=== PATIENT | female | born 1965 | race Caucasian/White ===

== ENCOUNTER 2022-01-03 07:30 | Inpatient (IN) ==
[2021-12-30 16:24] LABS: Appearance,Urine HAZY (Clear); Bilirubin,Urine Negative (Negative); Color,Urine YELLOW; Culture Indicated,Urine No; Glucose,Urine (UA) Negative (Negative); Ketones,Urine Negative (Negative); Leukocyte Esterase,Urine 250 /uL (Negative); Mucus,Urine FEW /hpf; Nitrate,Urine Negative (Negative); Protein,Urine Negative (Negative); Specific Gravity,Urine 1.038 (1.000-1.035); Urine Blood 0.03 mg/dL (Negative); Urine RBC 7 /hpf (0-3); Urine Squamous Epithelial Cell 10 /hpf (0-4); Urine Transitional Epi Cells < 1 /hpf (0-2); Urine WBC 34 /hpf (0-4); Urobilinogen,Urine Negative
[2021-12-30 18:08] LABS: INR 0.9 (0.9-1.1); Prothrombin Time 12.8 sec (11.9-14.5)
[2021-12-30 18:19] LABS: Basophils # (Auto) 0.04 K/mcL (0.00-0.30); Basophils % (Auto) 0.4 % (0.0-2.0); Eosinophils # (Auto) 0.15 K/mcL (0.00-0.70); Eosinophils % (Auto) 1.6 % (0.0-7.0); Hematocrit 41.2 % (34.1-44.9); Hemoglobin 13.7 g/dL (11.2-15.7); Lymphocytes # (Auto) 3.84 K/mcL (1.50-4.80); Lymphocytes % (Auto) 40.8 % (15.5-49.0); Mean Cell Volume 94.1 fL (80.0-100.0); Mean Corpuscular HGB Conc 33.3 g/dL (31.0-36.0); Mean Platelet Volume 10.3 fL (8.8-12.5); Monocytes # (Auto) 0.57 K/mcL (0.10-0.90); Monocytes % (Auto) 6.1 % (1.0-12.0); Neutrophils % (Auto) 50.7 % (38.0-78.0); Platelet Count 256 K/mcL (140-440); RBC 4.38 M/mcL (3.59-5.38); Red Cell Distribution Width 12.8 % (11.5-14.5); WBC 9.4 K/mcL (4.5-11.0)
[2021-12-30 18:27] LABS: Blood Urea Nitrogen 22 mg/dL (6-20); Calcium 9.4 mg/dL (8.6-10.4); Carbon Dioxide 22 mmol/L (22-30); Chloride 103 mmol/L (96-108); Glomerular Filtration Rate 101; Glucose 102 mg/dL (70-105)
--- NOTE | 2021-12-31 07:18 | EKG ---
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
[~2022-01-03 07:30] MED LIST: 0.9 % SODIUM CHLORIDE 9 ML, KETOROLAC 30 MG, ROPIVACAINE HCL/PF 49.5 ML, EPINEPHrine 0.... IJ SCH; ACETAMINOPHEN 500 MG TABLET PO SCH; CELECOXIB 200 MG CAPSULE PO SCH; PREGABALIN 75 MG CAPSULE PO SCH; ceFAZolin 2 GM in DEXTROSE 5% IN WATER 50 ML IV SCH; oxyCODONE 10 MG TAB.ER.12H PO SCH
[2022-01-03] MEDS ORDERED: SCOPOLAMINE 1 PATCH PATCH TOPICAL PRN (09:00)
[2022-01-03] MEDS ORDERED: IPRATROPIUM/ALBUTEROL 3 ML AMPUL.NEB NEB PRN ×2 (09:00→15:02)
--- NOTE | 2022-01-03 12:27 | Discharge Plan ---
Discharge Instructions - TKA Patient Instructions Total Knee Protocol: For Total Knee: Start ROM JUSTIN with stationary bike or rocking chair. Work on gaining full extension of knee. Posterior dislocation precautions provided. Hip abductor strengthening and gait training instructions provided. Apply Cryocuff as instructed. Additional Dressing Instructions: Leave Zip line closure patch intact until followup --May shower at anytime. Discharge Plan Patient/Caregiver Discharge Instructions Activity: ambulate only with your walker and as per physical therapy Diet: Regular Diet Prescriptions: New hydrocodone-acetaminophen 10-325 mg tablet 1 - 2 tab PO Q4H PRN (Reason: pain) Qty: 75 0RF aspirin [Ecotrin Low Strength] 81 mg tablet,delayed release (DR/EC) 81 mg PO BID Qty: 60 0RF docusate sodium 100 mg capsule 100 mg PO BID Qty: 60 0RF No Action fluticasone propionate 50 mcg/actuation spray,suspension 2 spray intranasal QDAY Rx Instructions: administer into each nostril Flovent Diskus 250 mcg/actuation blister with device 1 inh inhalation BID albuterol sulfate 2.5 mg /3 mL (0.083 %) solution for nebulization 2.5 mg inhalation Q4H PRN (Reason: wheezing) Zyrtec 10 mg capsule 10 mg PO QDAY hydrocodone-acetaminophen 10-325 mg Tablet 1 tab PO Q4H PRN (Reason: Pain) Qty: 0 albuterol sulfate 8.5 GM HFA aerosol inhaler 8.5 gm IH Q4H PRN (Reason: Wheezing) Qty: 1 0RF ascorbic acid (vitamin C) [Vitamin C] 1,000 mg Tablet 2 g PO QDAY ferrous sulfate 325 mg (65 mg iron) Tablet 325 mg PO QDAY sildenafil 25 mg tablet 25 mg PO BID sulfamethoxazole-trimethoprim 800-160 mg tablet 1 tab PO BID Other Ambulatory Orders: CPM Discharge Order (ONCE) Location: None Selected Ordered By: Hao Crump Physical Therapy DC - TKA (Routine) Location: None Selected Ordered By: Hao Crump Toilet Riser Discharge Order (ONCE) Location: None Selected Ordered By: Hao Crump Walker (ONCE) Location: None Selected Ordered By: Hao Crump Follow Up Plan Follow up with: Hao Crump PA-C [Physician Solution Developer] - Patient Disposition: Home, Self-Care Prognosis: Good Rehab Potential: Good I certify that the patient requires SNF services: No Overall status at discharge: patient is progressing back to baseline Discharge Orders: Discharge Order (Routine); Ordered 01/04/22 Ordered By: Hao Crump
[2022-01-03] MEDS ORDERED: KETAMINE 50 MG/ML Syringe (ANEST) IV ONE (14:16)
[2022-01-03] MEDS ORDERED: MAGNESIUM SULFATE 2 GM/50 ML BAG IV ONE (14:16)
[2022-01-03] MEDS ORDERED: ePHEDrine 50 MG/5 ML SYRINGE (ANEST) IV ONE (14:16)
[2022-01-03] MEDS ORDERED: TRANEXAMIC ACID 1,000 MG/10 ML VIAL ONE (14:16)
[2022-01-03] MEDS ORDERED: MIDAZOLAM 2 MG/2 ML VIAL ONE (14:16)
[2022-01-03] MEDS ORDERED: SUGAMMADEX SODIUM 200 MG/2 ML VIAL IV ONE (14:16)
[2022-01-03] MEDS ORDERED: PHENYLephrine 1 MG/10 ML SYRINGE (ANEST) ONE (14:16)
[2022-01-03] MEDS ORDERED: SUCCINYLCHOLINE 20 MG/ML ML IV ONE (14:16)
[2022-01-03] MEDS ORDERED: PROPOFOL 200 MG/20 ML VIAL IV ONE (14:16)
[2022-01-03] MEDS ORDERED: LIDOCAINE W/EPI 2% 20 ML VIAL ONE (14:16)
[2022-01-03] MEDS ORDERED: ROPIVACAINE HCL/PF 20 ML VIAL IJ ONE (14:16)
[2022-01-03] MEDS ORDERED: GLYCOPYRROLATE 0.2 MG/ML VIAL IV ONE (14:16)
[2022-01-03] MEDS ORDERED: DEXAMETHASONE 10 MG/ML VIAL ONE (14:16)
[2022-01-03] MEDS ORDERED: ONDANSETRON 4 MG/2 ML VIAL ONE (14:16)
[2022-01-03] MEDS ORDERED: LIDOCAINE HCL/PF 100 MG/5 ML SYRINGE IV ONE (14:16)
[2022-01-03] MEDS ORDERED: ROCURONIUM 10 MG/ML ML IV ONE (14:16)
[2022-01-03] MEDS ORDERED: LIDOCAINE W/EPI 1% 20 ML VIAL IJ ONE (14:44)
[2022-01-03] MEDS ORDERED: morphine 2 MG/ML VIAL IV PRN (15:02)
[2022-01-03] MEDS ORDERED: LACTATED RINGERS 250 ML IV PRN (15:02)
[2022-01-03] MEDS ORDERED: HYDROmorphone 0.5 MG/0.5 ML SYRINGE IV PRN (15:02)
[2022-01-03] MEDS ORDERED: PROMETHAZINE 25 MG/ML VIAL IV PRN (15:02)
[2022-01-03] MEDS ORDERED: KETOROLAC 30 MG/ML VIAL IV PRN (15:02)
[2022-01-03] MEDS ORDERED: MEPERIDINE 25 MG/ML VIAL IV PRN (15:02)
[2022-01-03] MEDS ORDERED: METHOCARBAMOL 1,000 MG/10 ML VIAL IV PRN (15:02)
[2022-01-03] MEDS ORDERED: NALOXONE HCL 0.4 MG/ML VIAL IV PRN (15:02)
[2022-01-03] MEDS ORDERED: LABETALOL 5 MG/ML ML IV PRN (15:02)
[2022-01-03] MEDS ORDERED: METOCLOPRAMIDE 10 MG/2 ML VIAL IV PRN (15:02)
[2022-01-03] MEDS ORDERED: MEPERIDINE 50 MG/ML VIAL IM PRN (15:02)
[2022-01-03] MEDS ORDERED: ONDANSETRON 4 MG/2 ML VIAL IV PRN ×2 (15:02→15:24)
[2022-01-03] MEDS ORDERED: METOPROLOL TARTRATE 5 MG/5 ML VIAL IV PRN (15:02)
[2022-01-03] MEDS ORDERED: PROMETHAZINE 25 MG/ML VIAL IM PRN (15:02)
[2022-01-03] MEDS ORDERED: ACETAMINOPHEN 1,000 MG/100 ML BAG IV ONE (15:02)
[2022-01-03] MEDS ORDERED: LACTATED RINGERS 1,000 ML IV SCH (15:15)
[2022-01-03] MEDS ORDERED: TEMAZEPAM 15 MG CAPSULE PO PRN (15:24)
[2022-01-03] MEDS ORDERED: MAGNESIUM HYDROXIDE 30 ML ORAL.SUSP PO PRN (15:24)
[2022-01-03] MEDS ORDERED: TRANEXAMIC ACID 1,000 MG/10 ML VIAL IV ONE (15:24)
[2022-01-03] MEDS ORDERED: BISACODYL 10 MG SUPP.RECT PR PRN (15:24)
[2022-01-03] MEDS ORDERED: POLYETHYLENE GLYCOL 3350 17 GM PACKET PO PRN (15:24)
[2022-01-03] MEDS ORDERED: FLEETS ADULT ENEMA PR PRN (15:24)
[2022-01-03] MEDS ORDERED: ACETAMINOPHEN 325 MG TABLET PO PRN (15:24)
--- NOTE | 2022-01-03 15:24 | Brief Operative Note ---
Brief Operative Note Date of procedure: 01/03/22 Pre-op diagnosis: Right knee loosened ligaments Post-op diagnosis: same Procedure: Right tka revision one comp and lipoma excision left arm Grafts/Implants: Yes Anesthesia: GETA Findings: djd and lipoma Complications: none Surgeon: Chau Novoa Bin Packer: Hao Crump Estimated blood loss (cc): 45 Tourniquet Time (Minutes): 36 Specimens Removed/Pathology: none sent Condition: stable Disposition: PACU
[2022-01-03] MEDS: fentaNYL 100 MCG/2 ML VIAL IV PRN ×3 (15:51→16:03)
--- NOTE | 2022-01-03 16:04 | XRay Report ---
INDICATION: Post-Op Total Knee TECHNIQUE: AP and crosstable lateral COMPARISON: Previous examination dated 04/18/2021 FINDINGS:Status post right total knee arthroplasty. Prosthetic components are in anatomic positions. There is soft tissue and intra-articular gas. IMPRESSION: Right total knee arthroplasty Interpreted and Authenticated by: Clyde Eng 01/03/22
--- NOTE | 2022-01-03 16:28 | Operative Note ---
DATE OF OPERATION: 01/03/2022 PREOPERATIVE DIAGNOSES: 1. 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 2. Left elbow lipoma on the proximal third of the forearm over the ulna. POSTOPERATIVE DIAGNOSES: 1. 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 2. Left elbow lipoma on the proximal third of the forearm over the ulna. PROCEDURE: 1. Right total knee arthroplasty revision of one component, the poly liner from a size 12 to a size 17. 2. Left lipoma removal of the left arm. SURGEON: Chau Novoa M.D. POULTRY INSPECTOR: Hao Crump PA-C. The PA's assistance was required for the safe and efficient completion of the entire case. This provider's expertise and technical skill were required throughout the case. The PA assisted with preoperative coordination, intraoperative retraction, wound closure, dressing and splint application, as well as postoperative documentation and care coordination. ANESTHESIA: General LMA anesthesia. COMPLICATIONS: None. TOURNIQUET TIME: Approximately 35 minutes. ESTIMATED BLOOD LOSS: Less than 45 mL. IMPLANTS: Size 17 mm poly liner for a cruciate-retained design, Karyna. DESCRIPTION OF PROCEDURE: The patient was brought to the operating room, put to sleep with general LMA anesthesia. A timeout was performed confirming the operative site by initials and consent form and confirmed preoperative antibiotics and tranexamic acid given. Ioban had been placed over the skin and we inflated the tourniquet to 250 pounds of pressure. A midline incision was made, a midvastus approach. We exposed the joint and removed the poly liner. We trialed the size 14 and this was too loose again. We then went up to the size 17, achieving stability throughout the full arc of motion. The patient tolerated this well. We placed the final 17 mm implant. We then thoroughly irrigated the joint, closed the mid capsule with #1 Stratafix. We removed any scar tissue where spurs were still impinging. We removed soft tissue around the patella. The fascial layer was closed with Stratafix x2 and then 2-0 Vicryl and adhesive closure on the skin. Next, a second procedure was performed on the left arm. After being sterilely prepped and draped, we had a timeout confirming the procedure on the left arm. The left arm was then incised about 1 cm over the mass that was firm and well fixed to the fascial layer. This was removed using an incision and then developing a plane around the very hard lipoma. This was removed with a lot of fibrous tissue around the lipoma that was encountered. The mass itself measured 2.5 x 1.5 cm by a thickness of about 10 mm. After being removed, we closed the skin with 2-0 Monocryl and a running subcuticular Monocryl. Sterile bandage was applied. The patient tolerated this well. Blood loss was minimal. There were no complications. SHAILA:justin Job ID: [id number] Doc ID: [id number] Chau Novoa MD
[2022-01-03] MEDS: 0.45 % SODIUM CHLORIDE 1,000 ML IV SCH (16:47)
[2022-01-03] MEDS: HYDROmorphone 1 MG/ML SYRINGE IV PRN ×3 (16:47→21:28)
[2022-01-03] MEDS: HYDROcodone/APAP 10/325MG TABLET PO PRN ×2 (17:44→22:38)
[2022-01-03] MEDS ORDERED: SENNOSIDES 1 TABLET PO SCH (21:00)
[2022-01-03] MEDS: ASPIRIN 81 MG TAB.CHEW PO SCH (21:30)
[2022-01-03] MEDS: DOCUSATE SODIUM 100 MG CAPSULE PO SCH (21:30)
[2022-01-03] MEDS: 0.9 % SODIUM CHLORIDE 10 ML SYRINGE IV SCH (21:31)
[2022-01-03] MEDS: ceFAZolin 1 GM VIAL IV SCH (22:37)
[2022-01-04] MEDS: HYDROmorphone 1 MG/ML SYRINGE IV PRN ×4 (00:06→07:50)
[2022-01-04] MEDS: HYDROcodone/APAP 10/325MG TABLET PO PRN ×2 (04:15→09:12)
[2022-01-04] MEDS: ceFAZolin 1 GM VIAL IV SCH (05:30)
[2022-01-04] MEDS: 0.9 % SODIUM CHLORIDE 10 ML SYRINGE IV SCH (05:30)
[2022-01-04] MEDS: 0.45 % SODIUM CHLORIDE 1,000 ML IV SCH (06:35)
[2022-01-04] MEDS: ASPIRIN 81 MG TAB.CHEW PO SCH (07:49)
[2022-01-04] MEDS: DOCUSATE SODIUM 100 MG CAPSULE PO SCH (07:49)
--- NOTE | 2022-01-04 10:12 | Orthopedic Progress Note ---
SUBJECTIVE Subjective Patient information: Note initiated : 01/04/22 at 10:09 am Service Date, if different from initiated Date: [] Patient: Gracia De Dios 56 y/o F admitted on 01/03/22 for Right Revision Total Knee Arthroplasty Revision . Chief Complaint: [minimal pain and is walking and eating well] Principal diagnosis: total knee Constitutional Vitals: Vital Signs Temp Pulse Resp BP Pulse Ox O2 Del Method O2 Flow Rate 98.4 F 82 16 136/61 96 0 01/04/22 08:00 01/04/22 08:00 01/04/22 08:00 01/04/22 08:00 01/04/22 08:00 01/04/22 08:00 01/04/22 04:00 Period Temp Pulse Resp BP Sys/Tim Pulse Ox O2 Del Method O2 Flow Rate Last 24 Hr 97.1 F-98.4 F 77-101 - 99-158/56-98 91-100 Room Air-Simple Mask 0-6 Intake and Output 01/03/22 01/04/22 01/04/22 21:59 05:59 13:59 Intake Total 2250 2252 Output Total 952 1950 Balance 1298 302 Intake & Output: Intake & Output 01/03/22 01/04/22 01/04/22 21:59 05:59 13:59 Intake Total 2250 2252 Output Total 952 1950 Balance 1298 302 Intake: IV 50 252 Sodium Chloride 0.45% 1,000 ml 252 @ 100 mls/hr IV .Q10H [facility] Rx#: [id number] Ancef 2 gm In Dextrose 5% in 50 Water 50 ml @ 100 mls/hr IV PREOP [facility]AD[facility] Rx#:[id number] Oral 800 2000 IV - Manual Only 1400 Output: Void Amount 950 1950 # of times incontinent of urine 2 Other: Meal Dinner Nourishment/Supplement Percent of Meal Consumed 100% 100% Feeding Ability Independent Nourishment/Supplement name tuna sandwich & dangelo crackers w/ peanut butter Urine Appearance Clear Clear Urine Color Yellow Yellow # Voids 1 1 Extremities Exam Extremities exam: Present joint swelling and Foot pink and warm OBJ DATA Labs CBC & Chem 7: 01/04/22 05:43 12/30/21 14:16 Meds: Medications Acetaminophen (Acetaminophen 325 Mg Tablet) 650 mg PO Q6HP PRN; Protocol PRN Reason: Per Pain Protocol/Fever > 101 Hydrocodone Bitart/Acetaminophen (Hydrocodone/Apap 10/325mg Tablet) 1 - 2 tab PO Q4HP PRN; Protocol PRN Reason: Per Pain Protocol Last Admin: 01/04/22 09:12 Dose: 1 tab Aspirin (Aspirin 81 Mg Tab.Chew) 81 mg PO BID [facility] Last Admin: 01/04/22 07:49 Dose: 81 mg Bisacodyl (Bisacodyl 10 Mg Supp.Rect) 10 mg RI Q2-3DAYS PRN PRN Reason: Constipation Docusate Sodium (Docusate Sodium 100 Mg Capsule) 100 mg PO BID [facility] Last Admin: 01/04/22 07:49 Dose: 100 mg Hydromorphone HCl (Hydromorphone 1 Mg/Ml Syringe) 0.5 - 2 mg IV Q2HP PRN; Protocol PRN Reason: Per Pain Protocol Last Admin: 01/04/22 07:50 Dose: 1 mg Magnesium Hydroxide (Magnesium Hydroxide 30 Ml Oral.Susp) 30 ml PO BIDP PRN PRN Reason: Constipation Ondansetron HCl (Ondansetron 4 Mg/2 Ml Vial) 4 mg IV Q4HP PRN PRN Reason: Nausea And Vomiting Polyethylene Glycol (Polyethylene Glycol 3350 17 Gm Packet) 17 gm PO DAILYP PRN PRN Reason: Constipation Senna (Sennosides 1 Tablet) 2 tab PO HS [facility] Last Admin: 01/03/22 21:30 Dose: 2 tab Sodium Biphosphate/Sodium Phosphate (Fleets Adult Enema) 1 dose RI Q3-4DAYS PRN PRN Reason: Constipation Sodium Chloride (0.9 % Sodium Chloride 10 Ml Syringe) 10 ml IV Q8 [facility] Last Admin: 01/04/22 05:30 Dose: 10 ml Temazepam (Temazepam 15 Mg Capsule) 15 mg PO HSP PRN PRN Reason: Insomnia Last Admin: 01/03/22 22:38 Dose: 15 mg A/P Assessment and plan (1) Total knee replacement status: Plan: dc home Status: Acute Plan dc home Time Spent With Patient Time: Total time spent is greater than 50% in coordination of care (as documented) at patient's floor/unit and/or counseling patient: Total time spent with greater than 50% in coordination of care (as documented) at patient's floor/unit and/or counseling patient:: 15 - 24 minutes
== END 2022-01-04 09:20 | disposition home or self-care (01) | DRG 465 ==
LOC: MEDSUR 08:42
PROVIDERS: ADMIT Orthopaedic Surgery; ATTEND Orthopaedic Surgery